=== PATIENT | male | born 1975 ===

== ENCOUNTER 2016-08-15 12:06 | Emergency (ER) | payer BC ==
--- NOTE | 2016-08-15 23:27 | UC ---
Liam Boogie Michael, scribed for Viry Hilario MD on 08/15/16 at 1507 . Complaint Male HPI - HPI Summary HPI Summary: 41 y/o male comes to the Urgent Care presenting with penile swelling and nino that started 2 days ago on Thursday morning. The pt a reports that the swelling has been constant since the onset and the pain has been alleviated. He also c/o a fever and chills that started 3 days ago. The fever and chills were alleviated with ibuprofen. The pt denies dysuria, hematuria, increased urination frequency, rash, and cough. He had sexual intercourse 5 days ago. The PMHx is significant for UTI with similar penile swelling. - History of Current Complaint Chief Complaint: UCGU Stated Complaint: UTI COMPLAINT Hx Obtained From: Patient, Medical Records Onset/Duration: Gradual Onset, Lasting Days, Still Present Timing: Constant Severity Initially: Moderate Severity Currently: Moderate Pain Intensity: 0 Pain Scale Used: 0-10 Numeric Location: Penis Aggravating Factor(s): Nothing Alleviating Factor(s): Nothing Associated Signs And Symptoms: Positive: Negative - rash. cough. increased urination frequency., Fever - and chills, Penile Swelling - and pain. Negative : Hematuria, Dysuria - Allergies/Home Medications Allergies/Adverse Reactions: Allergies Allergy/AdvReac Type Severity Reaction Status Date / Time No Known Allergies Allergy Verified 08/15/16 13:39 Home Medications: Home Medications NK [No Home Medications Reported] 08/15/16 [History Confirmed 08/15/16] PMH/Surg Hx/FS Hx/Imm Hx Previously Healthy: No - UTI Endocrine History Of: Denies: Diabetes, Thyroid Disease Cardiovascular History Of: Denies: Cardiac Disorders, Hypertension Respiratory History Of: Denies: COPD, Asthma GI/ History Of: Denies: Ulcer - Surgical History Surgical History: None - Family History Known Family History: Positive: Diabetes - Social History Occupation: Employed Full-time Lives: Alone Alcohol Use: Weekly Substance Use Type: None Smoking Status (MU): Never Smoked Tobacco Review of Systems Constitutional: Fever, Chills Skin: Negative Eyes: Negative ENT: Negative Respiratory: Negative Cardiovascular: Negative Gastrointestinal: Negative Genitourinary: Other - penile swelling and pain Motor: Negative Neurovascular: Negative Musculoskeletal: Negative Neurological: Negative Psychological: Negative All Other Systems Reviewed And Are Negative: Yes Physical Exam Triage Information Reviewed: Yes Appearance: Well-Appearing, Well-Nourished Vital Signs: Initial Vital Signs Temp 99 F 08/15/16 13:34 Pulse 69 08/15/16 13:34 Resp 16 08/15/16 13:34 BP 142/92 08/15/16 13:34 Pulse Ox 100 08/15/16 13:34 Vital Signs Reviewed: Yes Eye Exam: Normal ENT Exam: Normal Neck exam: Normal Respiratory Exam: Normal Respiratory: Positive: Chest non-tender, Lungs clear, Normal breath sounds, No respiratory distress, No accessory muscle use Cardiovascular Exam: Normal Cardiovascular: Positive: RRR, No Murmur, Pulses Normal Abdominal Exam: Other - Normal male genitalia. No inguinal adenopathy. Testes normal. Circumcised. No d/c appreciated. Distal shaft with swelling circumferential, not firm. No baljinder thrombosis noted. Not grossly c/w either paraphimosis, phimosis, or balanitis. Abdomen Description: Positive: Nontender Musculoskeletal Exam: Normal Neurological Exam: Normal Psychological Exam: Normal Skin Exam: Normal Complaint Male Course/Dx - Course Course Of Treatment: discussed patient care with Dr. Chambers (Urology) at 1530. He will kindly see Mr. Balderrama in his office upon discharge from here. Urine cx sent. Urine dip normal. - Differential Dx/Diagnosis Provider Diagnoses: Penile swelling Discharge - Discharge Plan Condition: Stable Disposition: HOME Referrals: [facility] [place] [facility] [Outside] Vahid Chambers MD [Medical Doctor] - Additional Instructions: Follow up with Dr. Chambers - he will see you in the office now. Follow up with a primary care physician as soon as you are able per routine. The documentation as recorded by the Liam hodges Michael accurately reflects the service I personally performed and the decisions made by me, Viry Hilario MD.
== END 2016-08-15 15:52 | disposition home or self-care (01) ==
LOC: UCEAST 12:06
DX: N48.89 Other specified disorders of penis (principal)
CPT/HCPCS: 81003; 99201; G0463